=== PATIENT | female | born 1980 ===

== ENCOUNTER 2024-05-29 14:37 | Inpatient (IN) | payer OTHER ==
[2024-05-29] MEDS: KETOROLAC 15 MG/ML 1 ML VIAL IVP STA (16:03)
[2024-05-29] MEDS: SODIUM CHLORIDE 0.9% 1,000 ML IV STA (16:04)
[2024-05-29 16:13] LABS: Basophils % (A) 0 %; Eosinophils # (A) 0.3 k/uL (0-0.7); Eosinophils % (A) 2 %; HGB 13.6 gm/dL (11.4-16.0); Lymphocytes # (A) 1.6 k/uL (1.0-4.8); Lymphocytes % (A) 12 %; MCH 28.9 pg (25.0-35.0); MCHC 32.3 g/dL (31.0-37.0); MCV 89.5 fL (80.0-100.0); Mean Platelet Volume 7.6; Monocytes # (A) 0.7 k/uL (0-1.0); Monocytes % (A) 5 %; Neutrophils # (A) 10.7 k/uL (1.3-7.7); Neutrophils % (A) 80 %; Platelet Count 335 k/uL (150-450); RBC 4.69 m/uL (3.80-5.40); RDW 13.5 % (11.5-15.5); WBC 13.5 k/uL (3.8-10.6)
[2024-05-29 16:26] LABS: ALT 15 U/L (4-34); AST 19 U/L (14-36); African American GFR (CKD) >90 (>60 ml/min/1.73 sqM); Albumin 4.2 g/dL (3.5-5.0); Alkaline Phosphatase 92 U/L (38-126); Anion Gap 8 mmol/L; Blood Urea Nitrogen 16 mg/dL (7-17); Calcium 9.6 mg/dL (8.4-10.2); Carbon Dioxide 26 mmol/L (22-30); Chloride 104 mmol/L (98-107); Glucose 87 mg/dL (74-99); Non-African American GFR(CKD) >90 (>60 ml/min/1.73 sqM); Potassium 4.1 mmol/L (3.5-5.1); Sodium 138 mmol/L (137-145); Total Bilirubin 0.4 mg/dL (0.2-1.3)
[2024-05-29] MEDS: LIDOCAINE 1% INJ 10MG/ML (20 ML MDV) SQ ONE (17:38)
--- NOTE | 2024-05-29 18:28 | ED ---
Skin/Abscess/FB HPI - General Chief complaint: Skin/Abscess/Foreign Body Stated complaint: wound on R side back/poss infection Time Seen by Provider: 05/29/24 15:10 Source: patient Mode of arrival: ambulatory Limitations: no limitations - History of Present Illness Initial comments: 44-year-old female with past medical history of polysubstance abuse who presents emergency department reporting abscess to the right shoulder. She states it sta rted off as a small pimple and now has grown significantly in size. She is at [facility] currently and has been there for the past 4 days. States that they have had her on Bactrim for 3 days but it is not helping. She has had some pustular drainage from the site. No history of MRSA. Due to worsening symptoms with need for I&D the patient was transferred to our facility. She denies fevers. Admits to considerable pain. She is on Suboxone. No other alleviating, precipitating or modifying factors - Related Data Home Medications Medication Instructions Recorded Confirmed Acetaminophen [Tylenol] 650 mg PO Q4H 05/29/24 05/29/24 Buprenorphine HCl/Naloxone HCl 1 film SL DAILY 05/29/24 05/29/24 [Suboxone 4 mg-1 mg Sl Film] Calcium/Magnesium/Vitamin D 1 tab PO TID PRN 05/29/24 05/29/24 Chlorpheniramine Maleate 4 mg PO Q4H PRN 05/29/24 05/29/24 [Chlor-Trimeton] Docusate [Colace] 100 mg PO BID PRN 05/29/24 05/29/24 Ibuprofen [Motrin Ib] 600 mg PO Q6H PRN 05/29/24 05/29/24 Losartan [Cozaar] 50 mg PO DAILY 05/29/24 05/29/24 Melatonin 10 mg PO HS 05/29/24 05/29/24 Multivitamins, Thera [Multivitamin 1 tab PO DAILY 05/29/24 05/29/24 (formulary)] Naproxen [Naprosyn] 500 mg PO BID 05/29/24 05/29/24 Sulfamethox-Tmp 800-160Mg [Bactrim 1 tab PO BID 05/29/24 05/29/24 DS 800-160 mg] Thiamine [Vitamin B-1] 100 mg PO DAILY 05/29/24 05/29/24 ondansetron HCL [Zofran] 8 mg PO Q6H PRN 05/29/24 05/29/24 Allergies Allergy/AdvReac Type Severity Reaction Status Date / Time tramadol [From Ultram] Allergy Rash/Hives Verified 05/29/24 17:43 clarithromycin [From Biaxin] AdvReac Nausea & Verified 05/29/24 17:43 Vomiting clonidine AdvReac bradycardia Verified 05/29/24 17:43 Review of Systems ROS Statement: Those systems with pertinent positive or pertinent negative responses have been documented in the HPI. ROS Other: All systems not noted in ROS Statement are negative. Past Medical History Past Medical History: Asthma, Hypertension Additional Past Medical History / Comment(s): substance abuse, arthritis, DDD, diverticulosis Past Surgical History: Breast Surgery, Section, Orthopedic Surgery Past Psychological History: Anxiety, Depression Smoking Status: Current every day smoker Past Alcohol Use History: Heavy Past Drug Use History: Cocaine, Heroin, IV Drug Use, Marijuana, Methamphetamine, Opiates, Prescription Drug Abuse General Exam Limitations: no limitations General appearance: alert, in no apparent distress Head exam: Present: atraumatic, normocephalic, normal inspection Eye exam: Present: normal appearance, PERRL, EOMI. Absent: scleral icterus, conjunctival injection, periorbital swelling ENT exam: Present: normal exam, mucous membranes moist Neck exam: Present: normal inspection. Absent: tenderness, meningismus, lymphadenopathy Respiratory exam: Present: normal lung sounds bilaterally. Absent: respiratory distress, wheezes, rales, rhonchi, stridor Cardiovascular Exam: Present: regular rate, normal rhythm, normal heart sounds. Absent: systolic murmur, diastolic murmur, rubs, gallop, clicks GI/Abdominal exam: Present: soft, normal bowel sounds. Absent: distended, tenderness, guarding, rebound, rigid Extremities exam: Present: normal inspection, full ROM, normal capillary refill. Absent: tenderness, pedal edema, joint swelling, calf tenderness Back exam: Present: normal inspection Neurological exam: Present: alert, oriented X3, CN II-XII intact Psychiatric exam: Present: normal affect, normal mood Skin exam: Present: warm, dry, other (Large abscess measuring 4 x 4 cm to the right posterior scapula with an area of cellulitis which measures 15 x 15 cm). Absent: rash Course Vital Signs 05/29/24 05/29/24 05/29/24 15:06 19:41 21:13 Temperature 98.7 F Pulse Rate 66 77 56 L Respiratory 22 18 18 Rate Blood Pressure 189/102 171/94 176/84 O2 Sat by Pulse 100 100 100 Oximetry 05/29/24 22:06 Temperature Pulse Rate Respiratory 18 Rate Blood Pressure O2 Sat by Pulse Oximetry Medical Decision Making - Medical Decision Making Was pt. sent in by a medical professional or institution ([facility]IE[facility] Romero, SUPPORT ENGINEER, urgent care, hospital, or [facility]...) When possible be specific @ -Patient was sent in from [facility] Did you speak to anyone other than the patient for history (EMS, parent, family, police, friend...)? What history was obtained from this source @ -No Did you review nursing and triage notes (agree or disagree)? Why? @ -I reviewed the transfer paperwork that was sent with the patient Were old charts reviewed (outside hosp., previous admission, EMS record, old EKG, old radiological studies, urgent care reports/EKG's, [facility] records)? Report findings @ -No old charts were reviewed Differential Diagnosis (chest pain, altered mental status, abdominal pain women, abdominal pain men, vaginal bleeding, weakness, fever, dyspnea, syncope, headache, dizziness, GI bleed, back pain, seizure, CVA, palpatations, mental health, musculoskeletal)? @ -Abscess, cellulitis, necrotizing fasciitis EKG interpreted by me (3pts min.). @ -Not done X-rays interpreted by me (1pt min.). @ -None done CT interpreted by me (1pt min.). @ -None done U/S interpreted by me (1pt. min.). @ -None done What testing was considered but not performed or refused? (CT, X-rays, U/S, labs)? Why? @ -None What meds were considered but not given or refused? Why? @ -None Did you discuss the management of the patient with other professionals (pr ofessionals i.e. DIEGO Romero, SUPPORT ENGINEER, lab, RT, psych nurse, licensed social worker, title lawyer, teacher, grants officer, nurse case manager)? Give summary @ -Spoke with Dr. Bobo for admission Was smoking cessation discussed for >3mins.? @ -No Was critical care preformed (if so, how long)? @ -No Were there social determinants of health that impacted care today? How? (Homelessness, low income, unemployed, alcoholism, drug addiction, transportation, low edu. Level, literacy, decrease access to med. care, skilled nursing, rehab)? @ -Patient is currently in rehab Was there de-escalation of care discussed even if they declined (Discuss DNR or withdrawal of care, Hospice)? DNR status @ -No What co-morbidities impacted this encounter? (DM, HTN, Smoking, COPD, CAD, Cancer, CVA, ARF, Chemo, Hep., AIDS, mental health diagnosis, sleep apnea, morbid obesity)? @ -None Was patient admitted / discharged? Hospital course, mention meds given and route, prescriptions, significant lab abnormalities, going to OR and other pertinent info. @ -Upon arrival patient seen and evaluated in room 20. Thorough history and physical exam was performed. IV access was established. Laboratory studies were conducted. Patient was given empirically dose of Ancef. I did obtain a wound culture. Laboratory studies are reviewed with the patient. Due to the extensive nature of the abscess I do feel that it would be better if the patient was evaluated by surgery for I&D. I did place the patient on Unasyn and vancomycin. Patient was agreeable to admission. She was resistant to me performing the I&D. I spoke with Dr. Bergman who did agree to the admission with surgery and infectious disease consult Undiagnosed new problem with uncertain prognosis? @ -No Drug Therapy requiring intensive monitoring for toxicity (Heparin, Nitro, Insu rosalie, Cardizem)? @ -No Were any procedures done? @ -No Diagnosis/symptom? @ -Acute abscess right scapula, acute cellulitis, right scapula, history of polysubstance abuse Acute, or Chronic, or Acute on Chronic? @ -Acute Uncomplicated (without systemic symptoms) or Complicated (systemic symptoms)? @ -Complicated Side effects of treatment? @ -No Exacerbation, Progression, or Severe Exacerbation? @ -No Poses a threat to life or bodily function? How? (Chest pain, USA, NH, pneumonia, PE, COPD, DKA, ARF, appy, cholecystitis, CVA, Diverticulitis, Homicidal, Suicidal, threat to staff... and all critical care pts) @ -No - Lab Data Result diagrams: 06/01/24 03:09 06/03/24 02:31 Lab Results 05/29/24 05/29/24 05/29/24 Range/Units 16:06 16:06 16:06 WBC 13.5 H (3.8-10.6) k/uL RBC 4.69 (3.80-5.40) m/uL Hgb 13.6 (11.4-16.0) gm/dL Hct 42.0 (34.0-46.0) % MCV 89.5 (80.0-100.0) fL MCH 28.9 (25.0-35.0) pg MCHC 32.3 (31.0-37.0) g/dL RDW 13.5 (11.5-15.5) % Plt Count 335 (150-450) k/uL MPV 7.6 Neutrophils % 80 % Lymphocytes % 12 % Monocytes % 5 % Eosinophils % 2 % Basophils % 0 % Neutrophils # 10.7 H (1.3-7.7) k/uL Lymphocytes # 1.6 (1.0-4.8) k/uL Monocytes # 0.7 (0-1.0) k/uL Eosinophils # 0.3 (0-0.7) k/uL Basophils # 0.0 (0-0.2) k/uL ESR 58 H (0-20) mm/Hr Sodium 138 (137-145) mmol/L Potassium 4.1 (3.5-5.1) mmol/L Chloride 104 (98-107) mmol/L Carbon Dioxide 26 (22-30) mmol/L Anion Gap 8 mmol/L BUN 16 (7-17) mg/dL Creatinine 0.64 (0.52-1.04) mg/dL Est GFR (CKD-EPI)AfAm >90 (>60 ml/min/1.73 sqM) Est GFR (CKD-EPI)NonAf >90 (>60 ml/min/1.73 sqM) Glucose 87 (74-99) mg/dL Plasma Lactic Acid Red 1.4 (0.7-2.0) mmol/L Calcium 9.6 (8.4-10.2) mg/dL Total Bilirubin 0.4 (0.2-1.3) mg/dL AST 19 (14-36) U/L ALT 15 (4-34) U/L Alkaline Phosphatase 92 (38-126) U/L C-Reactive Protein 9.0 H (<1.0) mg/dL Total Protein 7.0 (6.3-8.2) g/dL Albumin 4.2 (3.5-5.0) g/dL Disposition Clinical Impression: Back abscess, Cellulitis, Leukocytosis Disposition: ADMITTED IP TO THIS [facility] Condition: Stable Is patient prescribed a controlled substance at d/c from ED?: No Time of Disposition: 18:28 Decision to Admit Reason: Admit from EC Decision Date: 05/29/24 Decision Time: 18:28
[2024-05-29] MEDS ORDERED: NALOXONE 0.4 MG/ML 1 ML VIAL IV PRN (18:36)
[2024-05-29] MEDS ORDERED: VANCOMYCIN IV PER PHARMACY 1 EACH MISC MISCELLANE PRN (18:45)
[2024-05-29] MEDS: AMPICILLIN-SULBACTAM 3 GM in SODIUM CHLORIDE 0.9% 100 ML IVPB ONE (19:44)
[2024-05-29] MEDS: NAPROXEN 250 MG TAB PO SCH (21:13)
[2024-05-29] MEDS: HYDROmorphone 0.5 MG/0.5 ML SYRINGE IM PRN (23:01)
[2024-05-29] MEDS: MELATONIN 5 MG TABLET PO SCH (23:24)
[2024-05-29] MEDS: AMPICILLIN-SULBACTAM 3 GM in SODIUM CHLORIDE 0.9% 100 ML IVPB SCH (23:24)
[2024-05-29] MEDS: amLODIPine 5 MG TAB PO SCH (23:25)
[2024-05-29] MEDS: KETOROLAC 15 MG/ML 1 ML VIAL IVP PRN (23:56)
[2024-05-30] MEDS ORDERED: VANCOMYCIN 1,000 MG in SODIUM CHLORIDE 0.9% 250 ML IVPB SCH (02:00)
[2024-05-30] MEDS: VANCOMYCIN 1,000 MG in SODIUM CHLORIDE 0.9% 250 ML IVPB SCH (02:59)
[2024-05-30 03:56] LABS: Erythrocyte Sedimentation Rate 58 mm/Hr (0-20)
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
[2024-05-30 06:22] LABS: Glucose,Whole Blood 91 mg/dL (70-110)
[2024-05-30] MEDS: VANCOMYCIN 1,000 MG in SODIUM CHLORIDE 0.9% 250 ML IVPB ONE (07:27)
[2024-05-30] MEDS: LOSARTAN 50 MG TAB PO SCH (08:03)
[2024-05-30] MEDS: MULTIVITAMINS, THERA 1 EACH TAB PO SCH (08:03)
[2024-05-30] MEDS: THIAMINE 100 MG TAB PO SCH (08:03)
[2024-05-30] MEDS: NON FORMULARY DRUG (Buprenorphine Hcl/Naloxone Hcl [Suboxone 4 Mg-1 Mg Sl Film] 1 EACH Fil SUBLINGUAL SCH (08:05)
[2024-05-30 08:37] LABS: Basophils # (A) 0.03 X 10*3/uL (0.00-0.10); Basophils % (A) 0.3 %; Eosinophils # (A) 0.21 X 10*3/uL (0.04-0.35); Eosinophils % (A) 2.4 %; HCT 38.4 % (37.2-46.3); HGB 12.7 g/dL (12.0-15.0); Lymphocytes # (A) 1.04 X 10*3/uL (0.90-5.00); Lymphocytes % (A) 11.7 %; MCH 28.9 pg (27.0-32.0); MCHC 33.1 g/dL (32.0-37.0); MCV 87.3 FL (80.0-97.0); Mean Platelet Volume 11.2 FL (9.5-12.2); Monocytes # (A) 0.44 X 10*3/uL (0.20-1.00); Monocytes % (A) 4.9 %; NRBC Per 100 WBC 0 X 10*3/uL (0.00-0.01); Neutrophils # (A) 7.17 X 10*3/uL (1.80-7.70); Neutrophils % (A) 80.5 %; Platelet Count 294 X 10*3/uL (140-440); RDW 13.9 % (11.5-14.5); WBC 8.91 X 10*3/uL (4.50-10.00)
[2024-05-30 08:43] LABS: ALT 12 U/L (8-44); AST 14 U/L (13-35); Albumin 3.8 g/dL (3.8-4.9); Albumin/Globulin Ratio 1.65 Ratio (1.60-3.17); Alkaline Phosphatase 84 U/L (41-126); Blood Urea Nitrogen 11.9 mg/dL (9.0-27.0); Calcium 8.9 mg/dL (8.7-10.3); Carbon Dioxide 23.3 mmol/L (21.6-31.8); Chloride 105 mmol/L (96-109); Globulin 2.3 g/dL (1.6-3.3); Glucose 88 mg/dL (70-110); Potassium 4.4 mmol/L (3.5-5.5); Sodium 138 mmol/L (135-145); Total Bilirubin <0.2 mg/dL (0.3-1.2); Total Protein 6.1 g/dL (6.2-8.2)
--- NOTE | 2024-05-30 13:05 | P.GSCN ---
History of Present Illness Consult date: 05/30/24 History of present illness: CHIEF COMPLAINT: Right scapular abscess HISTORY OF PRESENT ILLNESS: This is a 44-year-old female with history of polysubstance abuse who is currently at [facility] for rehab. Patient reports that she had a pimple that started on the right shoulder about a week ago. It did drain pus. And then over the last 3 days it has worsened. It has become increased in redness pain and swelling. Currently with minimal drip drainage noted on the dressing. The area is indurated red and firm. Patient denies any history of diabetes. Denies any prior abscesses. Denies any history of MRSA. PAST MEDICAL HISTORY: Asthma, Hypertension, substance abuse, arthritis, DDD, diverticulosis anxiety, depression PAST SURGICAL HISTORY: Breast Surgery, Section, Orthopedic Surgery MEDICATIONS: See below ALLERGIES: See below SOCIAL HISTORY: No illicit drug use. History of alcohol abuse, history of cocaine, heroin, IV Drug Use, Marijuana, Methamphetamine, Opiates, Prescription Drug Abuse REVIEW OF SYSTEMS: CONSTITUTIONAL: Denies fever or chills. HEENT: Denies blurred vision, vision changes, or eye pain. Denies hemoptysis CARDIOVASCULAR: Denies chest pain or pressure. RESPIRATORY: No shortness of breath. GASTROINTESTINAL: See HPI for pertinent findings HEMATOLOGIC: Denies bleeding disorders. GENITOURINARY: Denies any blood in urine or increased urinary frequency. SKIN: Denies pruitis. Denies rash. PHYSICAL EXAM: VITAL SIGNS: Reviewed GENERAL: Well-developed in no acute distress. HEENT: No sclera icterus. Extraocular movements grossly intact. Moist buccal mucosa. Head is atraumatic, normocephalic. No nasal drainage. ABDOMEN: Soft. Nondistended. Nontender NEUROLOGIC: Alert and oriented. Cranial nerves II through XII grossly intact. Skin: Right scapular region abscess noted that is surrounded by area of erythema induration and fluctuance. There is area of granulation tissue about the size of a quarter. Small amount of serous drainage noted on the bandage. Area is tender with palpation. LABORATORY DATA: WBC 13.5 down to 8.91 Hgb 12.7 platelets 294 Sodium 130 potassium 4.4 creatinine 0.7 IMAGING: ASSESSMENT: 1. Left scapular abscess 2. Polysubstance abuse history 3. History of daily alcohol use PLAN: -Possible incision and drainage at bedside with Dr. Bhesania tomorrow -Continue antibiotics -Continue pain management -Continue supportive care Physician Belly Dump Driver note has been reviewed by physician. Signing provider agrees with the documented findings, assessment, and plan of care. Past Medical History Past Medical History: Asthma, Hypertension Additional Past Medical History / Comment(s): substance abuse, arthritis, DDD, diverticulosis, spinal stenosis History of Any Multi-Drug Resistant Organisms: None Reported Past Surgical History: Breast Surgery, Section, Orthopedic Surgery Additional Past Surgical History / Comment(s): left knee alograph Past Anesthesia/Blood Transfusion Reactions: No Reported Reaction, Unable to Obtain, Previous Problems w/ Anesthesia Past Psychological History: Anxiety, Depression Smoking Status: Current every day smoker Past Alcohol Use History: Heavy Past Drug Use History: Cocaine, Heroin, IV Drug Use, Marijuana, Methamphetamine, Opiates, Prescription Drug Abuse Medications and Allergies Home Medications Medication Instructions Recorded Confirmed Type Acetaminophen [Tylenol] 650 mg PO Q4H 05/29/24 05/29/24 History Buprenorphine HCl/Naloxone HCl 1 film SL DAILY 05/29/24 05/29/24 History [Suboxone 4 mg-1 mg Sl Film] Calcium/Magnesium/Vitamin D 1 tab PO TID PRN 05/29/24 05/29/24 History Chlorpheniramine Maleate 4 mg PO Q4H PRN 05/29/24 05/29/24 History [Chlor-Trimeton] Docusate [Colace] 100 mg PO BID PRN 05/29/24 05/29/24 History Ibuprofen [Motrin Ib] 600 mg PO Q6H PRN 05/29/24 05/29/24 History Losartan [Cozaar] 50 mg PO DAILY 05/29/24 05/29/24 History Melatonin 10 mg PO HS 05/29/24 05/29/24 History Multivitamins, Thera [Multivitamin 1 tab PO DAILY 05/29/24 05/29/24 History (formulary)] Naproxen [Naprosyn] 500 mg PO BID 05/29/24 05/29/24 History Sulfamethox-Tmp 800-160Mg [Bactrim 1 tab PO BID 05/29/24 05/29/24 History DS 800-160 mg] Thiamine [Vitamin B-1] 100 mg PO DAILY 05/29/24 05/29/24 History ondansetron HCL [Zofran] 8 mg PO Q6H PRN 05/29/24 05/29/24 History Allergies Allergy/AdvReac Type Severity Reaction Status Date / Time tramadol [From Ultram] Allergy Rash/Hives Verified 05/29/24 17:43 clarithromycin [From Biaxin] AdvReac Nausea & Verified 05/29/24 17:43 Vomiting clonidine AdvReac bradycardia Verified 05/29/24 17:43 Surgical - Exam Vital Signs Temp Pulse Resp BP Pulse Ox 98.7 F 66 22 189/102 100 05/29/24 15:06 05/29/24 15:06 05/29/24 15:06 05/29/24 15:06 05/29/24 15:06 Results - Labs 05/30/24 03:15 05/30/24 03:15 Abnormal Lab Results - Last 24 Hours (Table) 05/29/24 05/29/24 05/30/24 Range/Units 16:06 16:06 03:15 WBC 13.5 H (3.8-10.6) k/uL Neutrophils # 10.7 H (1.3-7.7) k/uL ESR 58 H (0-20) mm/Hr Total Bilirubin <0.2 L (0.3-1.2) mg/dL C-Reactive Protein 9.0 H (<1.0) mg/dL Total Protein 6.1 L (6.2-8.2) g/dL Microbiology - Last 24 Hours (Table) 05/29/24 16:06 Gram Stain - Preliminary Back Diabetes panel 05/29/24 05/30/24 Range/Units 16:06 03:15 Sodium 138 138 (137-145) mmol/L Potassium 4.1 4.4 (3.5-5.1) mmol/L Chloride 104 105 (98-107) mmol/L Carbon Dioxide 26 23.3 (22-30) mmol/L BUN 16 11.9 (7-17) mg/dL Creatinine 0.64 0.7 (0.52-1.04) mg/dL Glucose 87 88 (74-99) mg/dL Calcium 9.6 8.9 (8.4-10.2) mg/dL AST 19 14 (14-36) U/L ALT 15 12 (4-34) U/L Alkaline Phosphatase 92 84 (38-126) U/L Total Protein 7.0 6.1 L (6.3-8.2) g/dL Albumin 4.2 3.8 (3.5-5.0) g/dL Calcium panel 05/29/24 05/30/24 Range/Units 16:06 03:15 Calcium 9.6 8.9 (8.4-10.2) mg/dL Albumin 4.2 3.8 (3.5-5.0) g/dL Pituitary panel 05/29/24 05/30/24 Range/Units 16:06 03:15 Sodium 138 138 (137-145) mmol/L Potassium 4.1 4.4 (3.5-5.1) mmol/L Chloride 104 105 (98-107) mmol/L Carbon Dioxide 26 23.3 (22-30) mmol/L BUN 16 11.9 (7-17) mg/dL Creatinine 0.64 0.7 (0.52-1.04) mg/dL Glucose 87 88 (74-99) mg/dL Calcium 9.6 8.9 (8.4-10.2) mg/dL Adrenal panel 05/29/24 05/30/24 Range/Units 16:06 03:15 Sodium 138 138 (137-145) mmol/L Potassium 4.1 4.4 (3.5-5.1) mmol/L Chloride 104 105 (98-107) mmol/L Carbon Dioxide 26 23.3 (22-30) mmol/L BUN 16 11.9 (7-17) mg/dL Creatinine 0.64 0.7 (0.52-1.04) mg/dL Glucose 87 88 (74-99) mg/dL Calcium 9.6 8.9 (8.4-10.2) mg/dL Total Bilirubin 0.4 <0.2 L (0.2-1.3) mg/dL AST 19 14 (14-36) U/L ALT 15 12 (4-34) U/L Alkaline Phosphatase 92 84 (38-126) U/L Total Protein 7.0 6.1 L (6.3-8.2) g/dL Albumin 4.2 3.8 (3.5-5.0) g/dL
[2024-05-30] MEDS: ACETAMINOPHEN TAB 325 MG TAB PO PRN (13:19)
[2024-05-30] MEDS: BUPRENORPHINE HCL SUBLINGUAL SCH (13:21)
[2024-05-30] MEDS: NALOXONE HCL SUBLINGUAL SCH (13:21)
[2024-05-30] MEDS: DOCUSATE 100 MG CAP PO PRN (18:57)
--- NOTE | 2024-05-30 23:27 | P.CONS ---
History of Present Illness - Reason for Consult Consult date: 05/30/24 Large scapular abscess Requesting physician: Ramandeep Gray - Chief Complaint Pain swelling and drainage to the right scapula x few days - History of Present Illness Patient is a 44-year-old female with a past medical history significant for asthma hypertension substance abuse patient recently mention did have a fall while she was paddle boarding and has developed road rash to the right scapular area that subsequently has become bigger in size become painful and did have some drainage patient describing her pain to be sharp almost 8 out of 10 without radiation with associated swelling and some drainage patient denies high-grade fever she did have a low-grade fever of 99.6 F this afternoon, patient was not tachycardic hypotensive or hypoxic she did have vital of 13.5 with a left shift creatinine has been normal electrolytes are normal local culture has been obtained patient has been started on vancomycin and Unasyn infectious disease was consulted for further management of antibiotic therapy Review of Systems Positive point and negatives has been mentioned in the HPI, complete review of systems was performed and all other systems are negative Past Medical History Past Medical History: Asthma, Hypertension Additional Past Medical History / Comment(s): substance abuse, arthritis, DDD, diverticulosis, spinal stenosis History of Any Multi-Drug Resistant Organisms: None Reported Past Surgical History: Breast Surgery, Section, Orthopedic Surgery Additional Past Surgical History / Comment(s): left knee alograph Past Anesthesia/Blood Transfusion Reactions: No Reported Reaction, Unable to Obtain, Previous Problems w/ Anesthesia Past Psychological History: Anxiety, Depression Smoking Status: Current every day smoker Past Alcohol Use History: Heavy Past Drug Use History: Cocaine, Heroin, IV Drug Use, Marijuana, Methamphetamine, Opiates, Prescription Drug Abuse Medications and Allergies Home Medications Medication Instructions Recorded Confirmed Type Acetaminophen [Tylenol] 650 mg PO Q4H 05/29/24 05/29/24 History Buprenorphine HCl/Naloxone HCl 1 film SL DAILY 05/29/24 05/29/24 History [Suboxone 4 mg-1 mg Sl Film] Calcium/Magnesium/Vitamin D 1 tab PO TID PRN 05/29/24 05/29/24 History Chlorpheniramine Maleate 4 mg PO Q4H PRN 05/29/24 05/29/24 History [Chlor-Trimeton] Docusate [Colace] 100 mg PO BID PRN 05/29/24 05/29/24 History Ibuprofen [Motrin Ib] 600 mg PO Q6H PRN 05/29/24 05/29/24 History Losartan [Cozaar] 50 mg PO DAILY 05/29/24 05/29/24 History Melatonin 10 mg PO HS 05/29/24 05/29/24 History Multivitamins, Thera [Multivitamin 1 tab PO DAILY 05/29/24 05/29/24 History (formulary)] Naproxen [Naprosyn] 500 mg PO BID 05/29/24 05/29/24 History Sulfamethox-Tmp 800-160Mg [Bactrim 1 tab PO BID 05/29/24 05/29/24 History DS 800-160 mg] Thiamine [Vitamin B-1] 100 mg PO DAILY 05/29/24 05/29/24 History ondansetron HCL [Zofran] 8 mg PO Q6H PRN 05/29/24 05/29/24 History Allergies Allergy/AdvReac Type Severity Reaction Status Date / Time tramadol [From Ultram] Allergy Rash/Hives Verified 05/29/24 17:43 clarithromycin [From Biaxin] AdvReac Nausea & Verified 05/29/24 17:43 Vomiting clonidine AdvReac bradycardia Verified 05/29/24 17:43 Physical Exam Vitals: Vital Signs Temp Pulse Pulse Resp BP BP Pulse Ox 05/30/24 08:00 74 17 05/30/24 06:58 99.2 F 74 17 146/76 97 05/30/24 01:48 97.8 F 73 15 168/93 99 05/29/24 22:40 98.2 F 71 14 187/75 97 05/29/24 22:06 18 05/29/24 21:13 56 L 18 176/84 100 05/29/24 19:41 77 18 171/94 100 05/29/24 15:06 98.7 F 66 22 189/102 100 Intake and Output 05/29/24 05/30/24 05/30/24 22:59 06:59 14:59 Other: Weight 54.431 kg GENERAL DESCRIPTION: Middle-aged female lying in bed, no distress. No tachypnea or accessory muscle of respiration use. HEENT: Shows Pallor , no scleral icterus. Oral mucous membrane is dry. No pharyngeal erythema or thrush NECK: Trachea central, no thyromegaly. LUNGS: Unlabored breathing. Clear to auscultation anteriorly. No wheeze or crackle. HEART: S1, S2, regular rate and rhythm. No loud murmur ABDOMEN: Soft, no tenderness , guarding or rigidity, no organomegaly EXTREMITIES: No edema of feet. SKIN: Right scapular area did have significant swelling redness and minimal drainage NEUROLOGICAL: The patient is awake, alert, oriented x3, mood and affect normal. Results CBC & Chem 7: 05/30/24 03:15 05/30/24 03:15 Labs: Abnormal Lab Results - Last 24 Hours (Table) 05/29/24 05/29/24 05/30/24 Range/Units 16:06 16:06 03:15 WBC 13.5 H (3.8-10.6) k/uL Neutrophils # 10.7 H (1.3-7.7) k/uL ESR 58 H (0-20) mm/Hr Total Bilirubin <0.2 L (0.3-1.2) mg/dL C-Reactive Protein 9.0 H (<1.0) mg/dL Total Protein 6.1 L (6.2-8.2) g/dL Microbiology - Last 24 Hours (Table) 05/29/24 16:06 Gram Stain - Preliminary Back Assessment and Plan (1) Back abscess Current Visit: Yes Status: Acute Code(s): L02.212 - CUTANEOUS ABSCESS OF BACK [ANY PART, EXCEPT BUTTOCK] SNOMED Code(s): 891832242 (2) Cellulitis Current Visit: Yes Status: Acute Code(s): L03.90 - CELLULITIS, UNSPECIFIED SNOMED Code(s): 799108860 (3) Leukocytosis Current Visit: Yes Status: Acute Code(s): D72.829 - ELEVATED WHITE BLOOD CELL COUNT, UNSPECIFIED SNOMED Code(s): 266359279 Plan: 1patient presented to hospital with a large area of pain swelling and redness to the right scapular area patient mention started as a fall/road rash, no end up developing an abscess likely need to cover for gram-positive skin denton to the likely pathogen 2-await surgical drainage and deep culture 3-vancomycin pharmacy to dose with a target of 15 and Unasyn should provide ample empiric antibiotic coverage We will follow on clinical condition and cultures to further adjust medication if needed Thank you for this consultation we will follow the patient along with you Dictation was produced using [employer] dictation software. please excuse any grammatical, word or spelling errors. Time with Patient: Greater than 30
--- NOTE | 2024-05-31 02:44 | PN ---
PROGRESS NOTE SUBJECTIVE: The patient came in with large abscess on her back, upper right scapula. She is upset with a surgeon, who has apparently said she has amol it. The patient wants me to find out the surgeon to amol it as it needs to be done. She has a fluctuant mass in the back about 5 cm. Redness, swelling, fluctuance, unable to touch the central core which has open wounds. OBJECTIVE: CARDIOVASCULAR: S1, S2. LUNGS: Clear. PSYCH: Fair mood and affect. Very anxious. ASSESSMENT: Active abscess, right upper back secondary to travelling. Incision and drainage will have to be done. Remain on IV antibiotics. Prognosis guarded. MMODL / IJN: [id number] /
--- NOTE | 2024-05-31 07:50 | P.PN ---
Progress Note - Text Progress Note Date: 05/30/24 The patient was examined in her room. The patient appears to have an infected sebaceous cyst. The patient became belligerent and discussed her dislike of the nurse practitioner on the surgical service. The patient then became verbally combative with myself. The patient has an infected sebaceous cyst. There is no surgical invention planned at this point. The patient will be managed by the medical service. We will sign off.
[2024-05-31] MEDS: VANCOMYCIN TROUGH DUE 1 EACH MISC MISCELLANE ONE (09:27)
[2024-05-31 09:58] LABS: African American GFR (CKD) >90 (>60 ml/min/1.73 sqM); Non-African American GFR(CKD) >90 (>60 ml/min/1.73 sqM)
--- NOTE | 2024-05-31 12:05 | P.PN ---
Subjective This is a pleasant 44 years old female with past medical history of drug Addiction and IV drug abuse. Also she has history of tubal ligation and uterine ablation, she declines to do test because she cannot become as she explains Presents because of swelling with some purulent discharge on the right upper back, at the upper half of the scapula, and the area looks about 2 inches in diameter with a smooth surface and some spots with some purulent discharge. It looks warm and little tender with dressing in place Patient denies any other complaint, mobility is fine. Patient looks relaxed pleasant and smiling and not in distress. No signs symptoms of depression Vitals checked and looks stable She is on Suboxone at home Labs reviewed showing leukocytosis, which is improved back to reference range. Rest of labs were unremarkable. ESR is 58 Objective - Vital Signs Vital signs: Vital Signs Temp 98.4 F 05/31/24 07:36 Pulse 69 05/31/24 07:45 Resp 16 05/31/24 07:45 BP 155/87 05/31/24 07:36 Pulse Ox 93 L 05/31/24 07:36 FiO2 Intake & Output 05/30/24 05/31/24 05/31/24 18:59 06:59 18:59 Intake Total 250 Balance 250 Intake: Oral 250 Other: Voiding Method Toilet Toilet Urinal Urinal # Voids 3 2 - Exam GENERAL: The patient is alert and oriented x3, not in any acute distress. Well developed, well nourished. HEENT: Pupils are round and equally reacting to light. EOMI. No scleral icterus. No conjunctival pallor. Normocephalic, atraumatic. No pharyngeal erythema. No thyromegaly. CARDIOVASCULAR: S1 and S2 present. No murmurs, rubs, or gallops. PULMONARY: Chest is clear to auscultation, no wheezing , no crackles. ABDOMEN: Soft, nontender, nondistended, normoactive bowel sounds. No palpable organomegaly. -MUSCULOSKELETAL: No joint swelling or deformity. Large abscess at the right scapula in the upper back, about 2 inches in diameter with mild purulent discharge, dressing in place EXTREMITIES: No cyanosis, clubbing, or pedal edema. NEUROLOGICAL: Gross neurological examination did not reveal any focal deficits. SKIN: No rashes. no petechiae. - Labs CBC & Chem 7: 05/30/24 03:15 05/31/24 09:18 Labs: Microbiology - Last 24 Hours (Table) 05/29/24 16:06 Gram Stain - Preliminary Back Wound Culture - Preliminary Presumptive MRSA Assessment and Plan Assessment: Right scapular back abscess IV drug abuse Leukocytosis, resolved Elevated inflammatory markers Plan: Continue with antibiotics as per ID team, currently on IV vancomycin Surgery team for possible I&D Follow-up culture results Labs and medication were reviewed.. Continue same treatment. Continue with symptomatic treatment. Resume home medication. Monitor labs and vitals. DVT and GI prophylaxis. Further recommendations as per clinical course of the patient DVT prophylaxis: Subcutaneous heparin GI Prophylaxis: Pepcid Prognosis is guarded
[2024-05-31] MEDS: LACTULOSE 20 GM/30 ML CUP PO ONE (13:08)
[2024-05-31] MEDS: NICOTINE 14MG/24HR PATCH TRANSDERM SCH (13:08)
--- NOTE | 2024-05-31 15:32 | P.PN ---
Subjective Progress Note Date: 05/31/24 Principal diagnosis: Reason for follow-up is right scapular abscess MRSA Patient is a 44-year-old female with a past medical history significant for asthma hypertension substance abuse patient recently mention did have a fall subsequently while being an abscess to the right scapular area probably this consultation. On today's evaluation that is 05/31/2024, the patient has been afebrile I did received a call from the surgeon and apparently patient did not like her i nteraction with the surgical NURSE EPIDEMIOLOGIST who did sign off I saw the patient in the hallway as she was running around and ask her how she was doing she did ask if I was in the room yesterday and squeezed her shoulder during examination I replied yes patient subsequently mention she is getting antibiotic and do not need any of my service Objective - Vital Signs Vital signs: Vital Signs Temp 98.4 F 05/31/24 07:36 Pulse 69 05/31/24 07:45 Resp 16 05/31/24 07:45 BP 155/87 05/31/24 07:36 Pulse Ox 93 L 05/31/24 07:36 FiO2 Intake & Output 05/30/24 05/31/24 05/31/24 18:59 06:59 18:59 Intake Total 250 Balance 250 Intake: Oral 250 Other: Voiding Method Toilet Toilet Urinal Urinal # Voids 3 2 - Labs CBC & Chem 7: 05/30/24 03:15 05/31/24 09:18 Labs: Microbiology - Last 24 Hours (Table) 05/29/24 16:06 Gram Stain - Preliminary Back Wound Culture - Preliminary Presumptive MRSA Assessment and Plan (1) Back abscess Current Visit: Yes Status: Acute Code(s): L02.212 - CUTANEOUS ABSCESS OF BACK [ANY PART, EXCEPT BUTTOCK] SNOMED Code(s): 713058348 (2) Cellulitis Current Visit: Yes Status: Acute Code(s): L03.90 - CELLULITIS, UNSPECIFIED SNOMED Code(s): 072467154 (3) Leukocytosis Current Visit: Yes Status: Acute Code(s): D72.829 - ELEVATED WHITE BLOOD CELL COUNT, UNSPECIFIED SNOMED Code(s): 759397946 Plan: 1patient presented to hospital with a large area of pain swelling and redness to the right scapular area patient mention started as a fall/road rash, no end u p developing an abscess likely need to cover for gram-positive skin denton to the likely pathogen 2-await surgical drainage and deep culture 3-with initial culture growing presumptive MRSA patient continued on vancomycin pharmacy to dose with a target of 15 however I did discontinue her Unasyn With the patient refusing evaluation by myself I will sign off further management of her antibiotics per admitting team Dictation was produced using [employer] dictation software. please excuse any grammatical, word or spelling errors. Time with Patient: Less than 30
[2024-05-31] MEDS: HEPARIN SODIUM,PORCINE 5,000 UNIT/ML 1 ML VIAL SQ SCH (20:43)
[2024-05-31] MEDS: ONDANSETRON 4 MG TAB PO PRN (20:58)
[2024-05-31] MEDS: VANCOMYCIN 1,250 MG in SODIUM CHLORIDE 0.9% 250 ML IVPB SCH (21:03)
[2024-05-31] MEDS: HYDROmorphone 0.5 MG/0.5 ML SYRINGE IVP PRN (22:17)
--- NOTE | 2024-06-01 08:40 | P.CON ---
Consult Note - . Consult date: 06/01/24 Assessment/Plan:: CHIEF COMPLAINT: Right scapular abscess HISTORY OF PRESENT ILLNESS: This is a 44-year-old female with history of polysubstance abuse who is currently at [place] for rehab. Patient reports that she had a pimple that started on the right shoulder about a week ago. It did drain pus. And then over the last 3 days it has worsened. It has become increased in redness pain and swelling. Currently with minimal drip drainage noted on the dressing. The area is indurated red and firm. Patient denies any history of diabetes. Denies any prior abscesses. Denies any history of MRSA. PAST MEDICAL HISTORY: Asthma, Hypertension, substance abuse, arthritis, DDD, diverticulosis anxiety, depression PAST SURGICAL HISTORY: Breast Surgery, Section, Orthopedic Surgery MEDICATIONS: See below ALLERGIES: See below SOCIAL HISTORY: No illicit drug use. History of alcohol abuse, history of cocaine, heroin, IV Drug Use, Marijuana, Methamphetamine, Opiates, Prescription Drug Abuse REVIEW OF SYSTEMS: CONSTITUTIONAL: Denies fever or chills. HEENT: Denies blurred vision, vision changes, or eye pain. Denies hemoptysis CARDIOVASCULAR: Denies chest pain or pressure. RESPIRATORY: No shortness of breath. GASTROINTESTINAL: See HPI for pertinent findings HEMATOLOGIC: Denies bleeding disorders. GENITOURINARY: Denies any blood in urine or increased urinary frequency. SKIN: Denies pruitis. Denies rash. PHYSICAL EXAM: VITAL SIGNS: Reviewed GENERAL: Well-developed in no acute distress. HEENT: No sclera icterus. Extraocular movements grossly intact. Moist buccal mucosa. Head is atraumatic, normocephalic. No nasal drainage. ABDOMEN: Soft. Nondistended. Nontender NEUROLOGIC: Alert and oriented. Cranial nerves II through XII grossly intact. Skin: Right scapular region abscess noted that is surrounded by area of erythema induration and fluctuance. There is area of granulation tissue about the size of a quarter. Small amount of serous drainage noted on the bandage. Area is tender with palpation. ASSESSMENT: 1. Left scapular abscess 2. Polysubstance abuse history 3. History of daily alcohol use PLAN: -Incision and Drainage in OR today -Continue antibiotics -Continue pain management -Continue supportive care Domenic Hardin DO [facility] [phone]
[2024-06-01] MEDS: FAMOTIDINE 20 MG TAB PO SCH (08:50)
[2024-06-01 10:21] LABS: Basophils # (A) 0.05 X 10*3/uL (0.00-0.10); Basophils % (A) 0.7 %; Eosinophils # (A) 0.19 X 10*3/uL (0.04-0.35); Eosinophils % (A) 2.5 %; HCT 39.9 % (37.2-46.3); HGB 12.8 g/dL (12.0-15.0); Lymphocytes # (A) 2.13 X 10*3/uL (0.90-5.00); Lymphocytes % (A) 28.3 %; MCH 27.9 pg (27.0-32.0); MCHC 32.1 g/dL (32.0-37.0); MCV 86.9 FL (80.0-97.0); Mean Platelet Volume 11.1 FL (9.5-12.2); Monocytes # (A) 0.85 X 10*3/uL (0.20-1.00); Monocytes % (A) 11.3 %; NRBC Per 100 WBC 0 X 10*3/uL (0.00-0.01); Neutrophils % (A) 57.1 %; Platelet Count 311 X 10*3/uL (140-440); RBC 4.59 X 10*6/uL (4.10-5.20); WBC 7.53 X 10*3/uL (4.50-10.00)
[2024-06-01 10:32] LABS: BUN/Creat Ratio 15.83 Ratio (12.00-20.00); Blood Urea Nitrogen 9.5 mg/dL (9.0-27.0); Calcium 8.7 mg/dL (8.7-10.3); Carbon Dioxide 21.7 mmol/L (21.6-31.8); Chloride 106 mmol/L (96-109); Glucose 118 mg/dL (70-110); Potassium 4.1 mmol/L (3.5-5.5); Sodium 139 mmol/L (135-145)
[2024-06-01] MEDS: IV FLUID CONTINUATION 700 ML IV ONE (10:37)
[2024-06-01] MEDS ORDERED: PROPOFOL 10 MG/ML 20 ML VIAL IV ONE (10:37)
[2024-06-01] MEDS ORDERED: MIDAZOLAM 2 MG/2 ML VIAL ONE (10:37)
[2024-06-01] MEDS: BUPIVACAINE (PF) 0.25% 30 ML VIAL SQ ONE (10:55)
--- NOTE | 2024-06-01 10:57 | P.OP ---
Date of Procedure: 06/01/24 Preoperative Diagnosis: Right Scapular Abscess Postoperative Diagnosis: Right Scapular Abscess Procedure(s) Performed: Incision and Drainage Right Scapular Abscess Anesthesia: MAC Surgeon: Domenic Hardin Pathology: other (Cultures of Abscess) Condition: stable Disposition: PACU Description of Procedure: The patient was taken to the operating suite. Anesthesia was given and endotracheal intubation was performed. The patient was placed in the left lateral decubitus position. The patient was prepped and draped in usual sterile fashion. Lidocaine was used to anesthesize over the fluctuant area. A #10 blade was used to make an incision over the abscess. Purulent fluid was appreciated. Cultures were taken of the fluid. My finger was used to break up loculations. Bovie was used to control any bleeding. The abscess cavity was approximately 6 cm x 2 cm x 2 cm. The incision was packed and a sterile dressing was applied. The patient tolerated the procedure well and was sent to the PACU in stable condition.
[2024-06-01] MEDS: hydrALAZINE HCL 20 MG/ML 1 ML VIAL IVP PRN (11:38)
[2024-06-01] MEDS: KETOROLAC 15 MG/ML 1 ML VIAL IVP STA (12:35)
[2024-06-01] MEDS: HYDROcodone/APAP 10-325MG 1 EACH TAB PO PRN (16:36)
--- NOTE | 2024-06-01 22:58 | P.PN ---
Subjective This is a pleasant 44 years old female with past medical history of drug Addiction and IV drug abuse. Also she has history of tubal ligation and uterine ablation, she declines to do test because she cannot become as she explains Presents because of swelling with some purulent discharge on the right upper back, at the upper half of the scapula, and the area looks about 2 inches in diameter with a smooth surface and some spots with some purulent discharge. It looks warm and little tender with dressing in place Patient denies any other complaint, mobility is fine. Patient looks relaxed pleasant and smiling and not in distress. No signs symptoms of depression Vitals checked and looks stable She is on Suboxone at home Labs reviewed showing leukocytosis, which is improved back to reference range. Rest of labs were unremarkable. ESR is 58 06/01 Patient is status post I&D for her right scapular abscess After the procedure today she feels much better and happy Wound culture growing MRSA Currently covered with IV vancomycin Objective - Vital Signs Vital signs: Vital Signs Temp 98.3 F 06/01/24 19:52 Pulse 65 06/01/24 19:52 Resp 15 06/01/24 19:52 BP 151/76 06/01/24 19:52 Pulse Ox 100 06/01/24 19:52 FiO2 Intake & Output 06/01/24 06/01/24 06/02/24 06:59 18:59 06:59 Intake Total 820 Output Total 5 Balance 815 Intake: IV 600 Oral 220 Output: Estimated Blood Loss 5 Other: Voiding Method Toilet Urinal # Voids 3 2 - Exam GENERAL: The patient is alert and oriented x3, not in any acute distress. Well developed, well nourished. HEENT: Pupils are round and equally reacting to light. EOMI. No scleral icterus. No conjunctival pallor. Normocephalic, atraumatic. No pharyngeal erythema. No thyromegaly. CARDIOVASCULAR: S1 and S2 present. No murmurs, rubs, or gallops. PULMONARY: Chest is clear to auscultation, no wheezing , no crackles. ABDOMEN: Soft, nontender, nondistended, normoactive bowel sounds. No palpable o rganomegaly. -MUSCULOSKELETAL: No joint swelling or deformity. Large abscess at the right scapula in the upper back, about 2 inches in diameter with mild purulent discharge, dressing in place EXTREMITIES: No cyanosis, clubbing, or pedal edema. NEUROLOGICAL: Gross neurological examination did not reveal any focal deficits. SKIN: No rashes. no petechiae. - Labs CBC & Chem 7: 06/01/24 03:09 06/01/24 03:09 Labs: Abnormal Lab Results - Last 24 Hours (Table) 06/01/24 Range/Units 03:09 Glucose 118 H (70-110) mg/dL Microbiology - Last 24 Hours (Table) 05/29/24 16:06 Gram Stain - Final Back Wound Culture - Final Methicillin resist S. aureus Assessment and Plan Assessment: Right scapular back abscess status post I&D IV drug abuse Leukocytosis, resolved Elevated inflammatory markers Plan: Continue with antibiotics as per ID team, currently on IV vancomycin to treat MRSA infection Surgery team for I&D Follow-up culture results Labs and medication were reviewed.. Continue same treatment. Continue with symptomatic treatment. Resume home medication. Monitor labs and vitals. DVT and GI prophylaxis. Further recommendations as per clinical course of the patient DVT prophylaxis: Subcutaneous heparin GI Prophylaxis: Pepcid Prognosis is guarded
--- NOTE | 2024-06-02 05:09 | P.PN ---
Progress Note - Text Progress Note Date: 06/02/24 KESHAV. Pain is controlled. Denies fevers and chills. VSS General-NAD CVS-RRR Lungs-NLB Abdomen-soft, NTND 44 year old female POD #1 Incision and Drainage Right Scapular Abscess -Regular Diet -Ok for Nursing/Wound Care to do packing change and dressing change daily -Vancomycin -Cultures Pending Domenic Hardin DO [facility] [phone]
[2024-06-02] MEDS: IBUPROFEN 400 MG TAB PO PRN (09:41)
[2024-06-02 11:17] LABS: African American GFR (CKD) >90 (>60 ml/min/1.73 sqM); Non-African American GFR(CKD) >90 (>60 ml/min/1.73 sqM)
[2024-06-02] MEDS: VANCOMYCIN TROUGH DUE 1 EACH MISC MISCELLANE ONE (12:44)
[2024-06-02] MEDS ORDERED: NAPROXEN 250 MG TAB PO PRN (13:28)
[2024-06-02] MEDS: VANCOMYCIN 1,000 MG in SODIUM CHLORIDE 0.9% 250 ML IVPB SCH ×2 (13:33→22:30)
--- NOTE | 2024-06-02 16:13 | P.PN ---
Subjective This is a pleasant 44 years old female with past medical history of drug Addiction and IV drug abuse. Also she has history of tubal ligation and uterine ablation, she declines to do test because she cannot become as she explains Presents because of swelling with some purulent discharge on the right upper back, at the upper half of the scapula, and the area looks about 2 inches in diameter with a smooth surface and some spots with some purulent discharge. It looks warm and little tender with dressing in place Patient denies any other complaint, mobility is fine. Patient looks relaxed pleasant and smiling and not in distress. No signs symptoms of depression Vitals checked and looks stable She is on Suboxone at home Labs reviewed showing leukocytosis, which is improved back to reference range. Rest of labs were unremarkable. ESR is 58 06/01 Patient is status post I&D for her right scapular abscess After the procedure today she feels much better and happy Wound culture growing MRSA Currently covered with IV vancomycin 06/02 Patient feels better in her right upper back She has less discharge today Cultures growing presumptive MRSA Currently she is covered with IV vancomycin Today she was emotional because of family issues, Atarax is added as needed, patient confirms she takes it at home Objective - Vital Signs Vital signs: Vital Signs Temp 98.3 F 06/02/24 13:30 Pulse 58 L 06/02/24 13:30 Resp 16 06/02/24 13:30 BP 147/76 06/02/24 13:30 Pulse Ox 99 06/02/24 13:30 FiO2 Intake & Output 06/01/24 06/02/24 06/02/24 18:59 06:59 18:59 Intake Total 820 1080 240 Output Total 5 550 Balance 815 1080 -310 Intake: IV 600 Oral 220 1080 240 Output: Urine 550 Estimated Blood Loss 5 Other: # Voids 2 4 - Exam GENERAL: The patient is alert and oriented x3, not in any acute distress. Well developed, well nourished. HEENT: Pupils are round and equally reacting to light. EOMI. No scleral icterus. No conjunctival pallor. Normocephalic, atraumatic. No pharyngeal erythema. No thyromegaly. CARDIOVASCULAR: S1 and S2 present. No murmurs, rubs, or gallops. PULMONARY: Chest is clear to auscultation, no wheezing , no crackles. ABDOMEN: Soft, nontender, nondistended, normoactive bowel sounds. No palpable organomegaly. -MUSCULOSKELETAL: No joint swelling or deformity. Large abscess at the right scapula in the upper back, about 2 inches in diameter with mild purulent discharge, dressing in place EXTREMITIES: No cyanosis, clubbing, or pedal edema. NEUROLOGICAL: Gross neurological examination did not reveal any focal deficits. SKIN: No rashes. no petechiae. - Labs CBC & Chem 7: 06/01/24 03:09 06/02/24 10:56 Labs: Abnormal Lab Results - Last 24 Hours (Table) 06/02/24 Range/Units 10:56 Creatinine 0.50 L (0.52-1.04) mg/dL Microbiology - Last 24 Hours (Table) 06/01/24 10:59 Gram Stain - Preliminary Shoulder - Right 06/01/24 10:58 Gram Stain - Preliminary Shoulder - Right Assessment and Plan Assessment: Right scapular back abscess status post I&D IV drug abuse Leukocytosis, resolved Elevated inflammatory markers Plan: Continue with antibiotics as per ID team, currently on IV vancomycin to treat MRSA infection Surgery team for I&D Follow-up culture results, final results Atarax as needed for anxiety Labs and medication were reviewed.. Continue same treatment. Continue with symptomatic treatment. Resume home medication. Monitor labs and vitals. DVT and GI prophylaxis. Further recommendations as per clinical course of the patient DVT prophylaxis: Subcutaneous heparin GI Prophylaxis: Pepcid Prognosis is guarded
[2024-06-02] MEDS: IBUPROFEN 400 MG TAB PO SCH (18:08)
[2024-06-02] MEDS: hydrOXYzine HCL 25 MG TAB PO PRN (18:20)
[2024-06-03 03:35] LABS: African American GFR (CKD) >90 (>60 ml/min/1.73 sqM); Non-African American GFR(CKD) >90 (>60 ml/min/1.73 sqM)
--- NOTE | 2024-06-03 20:05 | P.PN ---
Subjective Progress Note Date: 06/03/24 Patient seen and examined at bedside. States she is feeling much better. Pain much improved. Objective - Vital Signs Vital signs: Vital Signs Temp 98.4 F 06/03/24 15:00 Pulse 78 06/03/24 15:00 Resp 17 06/03/24 15:00 BP 157/90 06/03/24 15:00 Pulse Ox 99 06/03/24 15:00 FiO2 Intake & Output 06/03/24 06/03/24 06/04/24 06:59 18:59 06:59 Intake Total 1620 Balance 1620 Intake: Oral 1620 Other: # Voids 6 4 - Constitutional General appearance: Present: cooperative, no acute distress - Respiratory Details: No difficulty with respiration - Integumentary Integumentary Comment(s): Incision site evaluated, no further evidence of an infected material draining, erythema appears improved. - Psychiatric Psychiatric: Present: A&O x's 3 - Labs CBC & Chem 7: 06/01/24 03:09 06/03/24 02:31 Labs: Microbiology - Last 24 Hours (Table) 06/01/24 10:58 Gram Stain - Preliminary Shoulder - Right Wound Culture - Preliminary Presumptive MRSA 06/01/24 10:59 Gram Stain - Preliminary Shoulder - Right Wound Culture - Preliminary Presumptive MRSA Assessment and Plan Plan: 44-year-old female status post I&D of right scapular area abscess. Site appears to be healing well and infection appears to be improving. Some packing removed today and rest to be removed tomorrow. Continue IV antibiotics. Continue ID recommendations. Nikki Jon DO
--- NOTE | 2024-06-04 02:49 | PN ---
PROGRESS NOTE A 44-year-old white female, status post abscess in her right scapula with I and D done. Microbiology is positive for MRSA, resistant to multiple medications, possibility of IV versus oral antibiotics on discharge. Possible discharge home soon. Prognosis guarded. MMODL / IJN: [id number] /
[2024-06-04] MEDS: BUPRENORPHINE-NALOX 8-2 MG TAB 1 EACH TAB.SUBL SL SCH (08:15)
[2024-06-04 14:01] VITALS: BP 135/80; PULSE 84; RESP 17; TEMP 98
[2024-06-04] MEDS: VANCOMYCIN TROUGH DUE 1 EACH MISC MISCELLANE ONE (14:31)
[2024-06-04] MEDS ORDERED: SULFAMETHOX-TMP 800-160MG 1 EACH TAB PO SCH (21:00)
== END 2024-06-04 15:38 | disposition left against medical advice (07) | DRG 364 ==
LOC: EC 14:37 → 4SSUR 18:38 → OBSVTOIN 18:39 → 4SSUR 21:03
PROVIDERS: ADMIT Family Medicine; ATTEND Family Medicine
PROC: 0J9D0ZZ Drainage of Right Upper Arm Subcutaneous Tissue and Fascia, Open Approach (ICD-10-PCS; principal; 2024-06-01 11:30)
DX: L02.212 Cutaneous abscess of back [any part, except buttock and flank] (principal); I10 Essential (primary) hypertension; L02.413 Cutaneous abscess of right upper limb; L03.312 Cellulitis of back [any part except buttock and flank]; L72.3 Sebaceous cyst; B95.62 Methicillin resistant Staphylococcus aureus infection as the cause of diseases classified elsewhere; F11.10 Opioid abuse, uncomplicated; F12.10 Cannabis abuse, uncomplicated; Z53.29 Procedure and treatment not carried out because of patient's decision for other reasons; F14.10 Cocaine abuse, uncomplicated; F17.210 Nicotine dependence, cigarettes, uncomplicated; J45.909 Unspecified asthma, uncomplicated; K57.30 Diverticulosis of large intestine without perforation or abscess without bleeding; F15.10 Other stimulant abuse, uncomplicated; F32.A Depression, unspecified; F41.9 Anxiety disorder, unspecified; Z98.51 Tubal ligation status; W19.XXXA Unspecified fall, initial encounter; Z79.899 Other long term (current) drug therapy; Z88.5 Allergy status to narcotic agent; Z88.1 Allergy status to other antibiotic agents; Z71.51 Drug abuse counseling and surveillance of drug abuser; Z71.6 Tobacco abuse counseling
CPT/HCPCS: 36415; 80048; 80053; 80202; 82565; 83605; 85025; 85652; 86140; 87070; 87075; 87077; 87102; 87186; 87205; 87324; 96365; 96366; 96367; 96375; 99285